=== PATIENT | female | born 1960 | race Caucasian/White ===

== ENCOUNTER 2019-08-10 15:47 | Emergency (ER) | payer MEDICAID ==
[~2019-08-10] VITALS: Ht 165.1 cm; Wt 78.0 kg
[2019-08-10 16:01] VITALS: BP 147/78
--- NOTE | 2019-08-10 16:11 | NUR ---
Patient ambulated to bed 4. RN evaluating patient at bedside.
--- NOTE | 2019-08-10 16:15 | NUR ---
PT BIB FAMILY C/O HEADACHE AND SORE THROAT X 4 DAYS. PT DENIES N/V/D OR TRAUMA; SKIN IS INTACT, PINK/WARM/DRY; AAOX4, PERRL, WITH EVEN AND STEADY GAIT; LUNGS CLEAR BL, BREATHING UNLABORED; HR EVEN AND REGULAR, BL PERIPHERAL PULSES PRESENT; BS ACTIVE X4, NO TENDERNESS TO PALPATION. PT DENIES ANY FEVER, CP, SOB, OR COUGH AT THIS TIME; PT STATES 5/10 PAIN AT THIS TIME; VSS; PATIENT POSITIONED FOR COMFORT; HOB ELEVATED; BEDRAILS UP X2; BED DOWN.
[2019-08-10] MEDS ORDERED: KETOROLAC 15 MG/ML VIAL IM ONE (16:20)
[2019-08-10] MEDS ORDERED: ACETAMINOPHEN EXTRA STRENGTH 500 MG TAB PO ONE (16:20)
--- NOTE | 2019-08-10 16:43 | NUR ---
IM/PO PAIN MEDS GIVEN-NADR AT THIS TIME. UA SENT TO LAB
[2019-08-10 17:57] LABS: APPEARANCE,URINE CLEAR (CLEAR); BILIRUBIN,URINE NEGATIVE (NEGATIVE); BLOOD, URINE NEGATIVE (NEGATIVE); COLOR,URINE YELLOW (YELLOW); LEUKOCYTE ESTERASE ,URINE NEGATIVE (NEGATIVE); NITRITE, URINE NEGATIVE (NEGATIVE); UGLUCOSE NEGATIVE (NEGATIVE)
--- NOTE | 2019-08-10 18:25 | NUR ---
Patient discharged with v/s stable. Written and verbal after care instructions given and explained. Patient verbalized understanding. Ambulatory with steady gait. All questions addressed prior to discharge. Advised to follow up with PMD.
[2019-08-10 18:26] VITALS: BP 137/69
== END 2019-08-10 18:25 | disposition home or self-care (01) ==
LOC: MED 15:47
DX: R51 Headache (principal)
CPT/HCPCS: 81003; 96372; 99283; J1885